=== PATIENT | male | born 1950 | race Caucasian/White ===

== ENCOUNTER → 2024-04-23 06:52 | Outpatient (REF) | payer OTHER, SELFPAY | LOC: RAD 06:52 | PROVIDERS: ATTENDING PHYSICIAN Urology; FAMILY PHYSICIAN Family Medicine | DX: N28.89 Other specified disorders of kidney and ureter (principal); C64.9 Malignant neoplasm of unspecified kidney, except renal pelvis | CPT/HCPCS: 71046; 74178; Q9967 ==

== ENCOUNTER → 2024-12-11 17:08 | Outpatient (REF) | payer OTHER, SELFPAY | LOC: MRI 3T 17:08 | PROVIDERS: ATTENDING PHYSICIAN Urology; FAMILY PHYSICIAN Family Medicine | DX: R97.20 Elevated prostate specific antigen [PSA] (principal) | CPT/HCPCS: 72197; A9575 ==

== ENCOUNTER 2025-02-22 06:17 | Day surgery (SDC) | payer OTHER, SELFPAY ==
[2025-01-26 08:59] LABS: Hematocrit 42.2 % (39.0-52.0); Hemoglobin 14.4 g/dL (13.0-18.0); Mean Corp Hgb Conc. 34.1 g/dL (33.0-37.0); Mean Corpuscular Hgb 32.1 pg (27.0-31.0); Mean Platelet Volume 10.1 fL (7.4-10.4); Platelet Count 359 10^3/uL (130-400); Red Blood Cell Count 4.49 10^6/uL (4.70-6.10); Red Cell Dist. Width 12.2 % (11.5-14.5); White Blood Cell Count 5.8 10^3/uL (4.8-10.8)
[2025-01-26 09:41] LABS: Blood Urea Nitrogen 29 mg/dl (9-20); Calcium 9.8 mg/dl (8.4-10.2); Carbon Dioxide 28 mmol/L (22-30); Chloride 101 mmol/L (98-107); Glucose 86 mg/dl (70-99); Potassium 4.7 mmol/L (3.5-5.1); Sodium 138 mmol/L (135-145); eGFR > 60.00
[2025-01-26 14:07] VITALS: BMI 24.9
[2025-02-22] VITALS (10 sets, daily range): BP systolic 127–169; BP diastolic 74–92; BMI 24.9
[2025-02-22] MEDS: TYLENOL 1000 MG PO (06:51)
[2025-02-22] MEDS: NORMOSOL-R/PLASMALYTE-A 1000 IV (07:03)
--- NOTE | 2025-02-22 07:07 | HP.FOC2 ---
Focused History & Physical
Chief Complaint
HPI:
Chief Complaint: Recurrent left inguinal hernia
HPI / Indication for Planned Procedure: Patient is a 74-year-old male with a known history of a recurrent left inguinal hernia -open right inguinal hernia plug and patch repair in 1998. He also has a past abdominal surgical history notable for RAL
partial left nephrectomy and RAL sigmoidectomy. His hernia slightly increased in size since noticing. He has an awareness of the hernia being present but no significant pain or discomfort. Presents today for scheduled operative correction.
Relevant Past Medical History: Other (BPH, diverticulosis, history of kidney stones, CAD with history of PA, ischemic cardiomyopathy, DJD, skin cancers, hyperlipidemia)
Relevant Social History: Negative
Relevant Family History: Negative
Relevant Past Surgical History: Positive for (Coronary stenting x 2, inguinal hernia repairs, sigmoidectomy, left partial nephrectomy)
Review of Systems
Review of Pertinent Systems: All Systems Negative
Medication
See Medication form for detailed medications: Yes
Medication List (including Herbals & OTC):
ascorbic acid (vitamin C) 500 mg tablet (Vitamin C) 500 mg PO DAILY Supplement 01/23/21
aspirin 81 mg tablet,delayed release (Adult Aspirin Regimen) 81 mg PO HS Blood clot prevention/tx 01/23/21
carvedilol 3.125 mg tablet 3.125 mg PO HS Heart disease/condition 01/23/21
cholecalciferol (vitamin D3) 25 mcg (1,000 unit) capsule (Vitamin D3) 2,000 unit PO DAILY Supplement 01/23/21
coenzyme Q10 50 mg chewable tablet 100 mg PO DAILY Supplement 01/23/21
ezetimibe 10 mg tablet 10 mg PO HS High cholesterol 01/23/21
fenofibrate nanocrystallized 145 mg tablet 145 mg PO HS High cholesterol 01/23/21
losartan 25 mg tablet 12.5 mg PO DAILY@1200 Blood pressure 01/23/21
multivitamin 1 ea PO DAILY@1200 Supplement 01/23/21
rosuvastatin 20 mg tablet 20 mg PO QPM High cholesterol 03/16/21
Fiber Therapy 2 tab PO DAILY@1200 05/09/21
levothyroxine 37.5 mcg capsule 37.5 mcg PO DAILY 02/15/25
Medications Reviewed: Yes
Allergies and Reactions
Patient has Allergies: No
Noted Allergies and Reactions:
Allergy/AdvReac Type Severity Reaction Status Date / Time
No Known Allergies Allergy Verified 02/22/25 06:41
Pertinent Physical Exam
All Other Systems: Negative
Head/Neck: Normal
Lungs: Normal
Heart: Normal
Abdomen: Other (Reducible left inguinal hernia; multiple abdominal wall surgical scars)
Extremities: Normal
Neurological: Normal
Diagnosis / Assessment
74-year-old male presenting for scheduled operative correction of recurrent left inguinal hernia
Plan / Procedure
Robotic assisted laparoscopic repair recurrent left inguinal hernia with mesh
Anesthesia/Sedation to be done by Anesthesia Provider: Yes
--- NOTE | 2025-02-22 07:12 | W.SUR.PREOP ---
Pre-Operative Surgical Note
-
I have examined this patient prior to the performance of the scheduled procedure.
The patient's condition is unchanged from the time of the current History and
Physical and the patient is able to undergo the scheduled procedure.
--- NOTE | 2025-02-22 09:51 | W.IMMPOSTOP ---
Addendum entered and electronically signed by Guevara Ann MD 02/22/25 10:03:
#[id number]
Original Note:
Surgical Immed Post Op Note
-
Primary Surgeon: Guevara Ann MD
Assisting Surgeon: Iza Suero PA-C
Pre-op Diagnosis: Recurrent left inguinal hernia
Post-op Diagnosis: Recurrent left inguinal hernia; direct
Left spigelian hernia -1 to 2 cm defect
Procedure Performed: Robotic assisted laparoscopic repair left inguinal hernia with mesh; 3D max large mid weight
Robotic assisted laparoscopic repair left spigelian hernia with mesh; soft mesh 5cm x 5 cm
Anesthesia Type: GETA +0.25% Marcaine
Specimen / Cultures: None
Estimated Blood Loss: 4 mL
Complications: None immediate
Operative Findings: Left direct inguinal hernia. No lipoma of cord structures. Indirect and femoral space normal. Plication of pseudosac with 2-0 PDS STRATAFIX. 3D max large mid weight mesh repair secured to Alex's ligament with 2-0 Vicryl
stitch x 2.
Incidental left spigelian hernia -small amount of herniated peritoneum and preperitoneal fat reduced. Fascial defect approximately 1.5 cm. Approximated with single 2-0 PDS stitch. Mesh reinforcement of repair with underlay preperitoneal soft mesh
5 cm x 5 cm which was within the already created inguinal preperitoneal flap.
The assistance of Iza Suero PA-C was required due to the complexity of the procedure. During the procedure Iza Suero PA-C assisted with port placement, robotic instrumentation and suture material exchanges, and closure of the surgical incision
sites. I was present for the entirety of the operative procedure.
== END 2025-02-22 11:30 | disposition home or self-care (01) ==
LOC: SDS 06:17
PROVIDERS: ATTENDING PHYSICIAN Surgery; FAMILY PHYSICIAN Family Medicine
DX: K40.91 Unilateral inguinal hernia, without obstruction or gangrene, recurrent (principal); K43.9 Ventral hernia without obstruction or gangrene
CPT/HCPCS: 49651; 49591; 36415; 80048; 85027; C1781

== ENCOUNTER → 2025-04-26 12:40 | Outpatient (REF) | payer OTHER, SELFPAY | LOC: RAD 12:40 | PROVIDERS: ATTENDING PHYSICIAN Urology; FAMILY PHYSICIAN Family Medicine; OTHER PHYSICIAN Surgery | DX: N28.89 Other specified disorders of kidney and ureter (principal); N20.0 Calculus of kidney; Z98.890 Other specified postprocedural states; Z87.19 Personal history of other diseases of the digestive system; C64.9 Malignant neoplasm of unspecified kidney, except renal pelvis | CPT/HCPCS: 71046; 72170; 76775 ==